=== PATIENT | female | born 1985 | race Caucasian/White ===

== ENCOUNTER 2023-08-20 18:00 | Emergency (ER) | payer MEDICAID, SELFPAY ==
[2023-08-20 18:01] VITALS: BP 114/87; PULSE 82; RESP 16; TEMP 36.3; O2SAT 99; BMI 24.5
[2023-08-20 20:24] LABS: Absolute Lymphocyte Count 4.37 X10^3/uL (0.83-4.51); Absolute Neutrophil Count 6.8 X10^3/uL (2.0-7.7); Basophil% 0.8 % (0-1); Differential Indicated SCAN CRITERIA MET; Eosinophil# 0.14 X10^3/uL; Eosinophils% 1.1 % (0-5); Hematocrit 47.7 % (37-47); Lymphocyte # 4.37 X10^3/ul (0.83-4.51); Lymphocyte % 35.8 % (19-41); Mean Corp Hgb Conc 31.4 g/dL (32-36); Mean Corpuscular Hgb 28.8 pg (27.0-32.0); Mean Corpuscular Volume 91.6 fL (81-99); Mean Platelet Vol. 9.8 fl (6.2-12.0); Monocyte# 0.71 X10^3/uL; Monocyte% 5.8 % (0-10); NRBC Flagged by Analyzer 0 % (0-5); Neutrophil # 6.82 X10^3/uL (2.7-7.7); Neutrophil % 55.9 % (47-70); POSITIVE MORPHOLOGY YES; Platelet Count 373 K/mm3 (150-450); RBC Distribution Width CV 13.9 % (11.6-14.6); RBC Distribution Width SD 46.9 fl (35.1-43.9); Red Blood Count 5.21 M/mm3 (4.2-5.4); White Blood Count 12.2 K/mm3 (4.4-11.0)
[2023-08-20 20:39] LABS: Internal QC Validated? YES +Cl - CLEAR BKGD; Pregnancy, Serum, hCG Quali. NEGATIVE Negative
[2023-08-20 20:44] LABS: Alcohol, Blood (Medical)-Serum < 3.0 mg/dL
[2023-08-20 20:46] LABS: Anion Gap 3 (5-15); BUN 8 mg/dL (7-18); Calcium,Total 9.4 mg/dL (8.5-10.1); Chloride 108 mmol/L (98-107); Creatinine, Serum 0.67 mg/dL (0.55-1.02); EST Glomerular Filtration Rate 104 mL/min (>60); Est Glom Filt Rate - Afr Amer 126 mL/min (>60); Estimated Creatinine Clearance 113.72 ml/min; Glucose 93 mg/dL (74-106); Potassium 3.7 mmol/L (3.5-5.1); Sodium Level 139 mmol/L (136-145)
[2023-08-20 20:53] LABS: Differential Comment SCANNED
[2023-08-20 20:54] LABS: Reactive Lymphocyte RARE
[2023-08-20 20:56] LABS: Amphetamine Urine NEGATIVE (<1000 ng/mL); Barbiturate Urine NEGATIVE (< 200 ng/mL); Benzodiazepine Urine NEGATIVE (< 200 ng/mL); Cocaine Urine NEGATIVE (< 300 ng/mL); Ecstacy Urine NEGATIVE (< 500 ng/mL); Methadone Urine NEGATIVE (< 300 ng/mL); Opiates Urine NEGATIVE (< 300 ng/mL); PCP Urine NEGATIVE (< 25 ng/mL); THC Urine NEGATIVE (< 50 ng/mL); Vista UDS pH Range 5
[2023-08-20 21:19] VITALS: BP 116/79; PULSE 73; RESP 18; O2SAT 98
[2023-08-20 22:00] VITALS: RESP 18
[2023-08-21 01:33] VITALS: BP 116/79; PULSE 81; RESP 16; O2SAT 98
--- NOTE | 2023-08-21 03:53 | ED.RN ---
Report called to SHAYLEE Zambrano at [facility]
--- NOTE | 2023-08-21 08:08 | EX.ED.DYSGE1 ---
HPI History of Present Illness Chief Complaint: Mental Health Informant: patient Narrative Narrative: Patient is a 37-year-old female with past medical history of depression anxiety and methamphetamine abuse. She is currently in rehab secondary to this. She states that she is having increased depression based on her situation at this time and has thoughts of harming herself. She reports she has attempted to overdose multiple times in the past. She states that she recognizes that because of her worsening depression she is at high risk for attempting to harm herself based on her past history and therefore informed members of the rehab group about this and she was sent to the ER for evaluation [facility] Medical History Anxiety History of drug overdose Depression Home Medications ?Medication ?Instructions ?Recorded ?Last Taken ?Type NK 08/20/23 Unknown History Allergy/AdvReac Type Severity Reaction Status Date / Time Food Allergies: Uncoded Allergy Hives Verified 08/20/23 18:05 latex Allergy Rash Verified 08/20/23 18:06 peanut Allergy Anaphylaxis Verified 08/20/23 18:05 Penicillins Allergy Anaphylaxis Verified 08/20/23 18:06 pineapple Allergy Anaphylaxis Verified 08/20/23 18:05 vancomycin Allergy Anaphylaxis Verified 08/20/23 18:06 Sulfa (Sulfonamide AdvReac Upset Verified 08/20/23 18:06 Antibiotics) (sulfa drugs) Stomach Social History Smoking Status: Current every day smoker tobacco type: cigarettes and e-cigarettes ROS ROS ED Constitutional Constitutional ED: Denies chills or fever(s) ENT ENT ED: Denies sore throat Cardiovascular Cardiovascular: Denies chest pain Respiratory/Chest Respiratory/Chest: Denies cough or dyspnea Gastrointestinal Gastrointestinal: Denies abdominal pain, diarrhea, nausea or vomiting Genitourinary Genitourinary ED: Denies dysuria or hematuria Musculoskeletal Musculoskeletal: Denies myalgias Integumentary Denies rash Neurologic Neurologic: Denies headache(s) Psychiatric Psychiatric: Reports anxiety, depression and suicidal ideation Hematologic/Lymphatic Hematologic/Lymphatic: Denies easy bleeding or easy bruising EXAM Physical Exam Const Vital Signs: 08/20/23 18:01 08/20/23 21:19 08/20/23 22:00 Temperature 97.4 F L Temperature Source Temporal Pulse Rate 82 73 Respiratory Rate 16 18 18 Blood Pressure 114/87 H 116/79 Blood Pressure Mean 96 91 Pulse Ox 99 98 Oxygen Delivery Method Room Air Room Air Room Air 08/21/23 01:33 Temperature Temperature Source Pulse Rate 81 Respiratory Rate 16 Blood Pressure 116/79 Blood Pressure Mean 91 Pulse Ox 98 Oxygen Delivery Method Room Air Positive well nourished and well developed General Appearance ED: well developed; Negative for pallor HEENT HEENT Narrative: Normocephalic atraumatic Eyes PERRL and EOMs intact bilaterally Neck supple Neck Narrative: No nuchal rigidity or meningeal signs Resp normal respiratory effort and clear to auscultation bilaterally Cardio regular rate and regular rhythm GI normal to inspection, nondistended, normoactive bowel sounds, non-tender, non-distended and no masses Auscultation: normoactive bowel sounds Palpation: soft Extremity normal to inspection Extremity Narrative: No asymmetric edema no pitting edema negative Homans' sign bilaterally Neuro oriented x3, CN's II-XII intact bilaterally and no sensory deficits noted Sensorium / Orientation: alert Motor Exam: strength 5/5 throughout Psych Psych Narrative: Patient has a depressed/flat affect with suicidal ideation Skin no rashes or lesions noted General Skin Exam: Negative for jaundice or pallor MDM MDM MDM Narrative Medical decision making narrative: Patient presented to the ER with stable vitals or reported history of depression with previous suicide attempt by overdose. She endorsed thoughts of this at this time as she states her depression is worsening. As patient is high risk to harm herself based on her previous history a psychiatric screening exam was performed. Workup revealed no clinically significant findings and therefore patient was medically cleared. Crisis center/psychiatry was contacted and evaluated the patient and agree that based on her high risk for self-harm and her worsening depression she will need placed. Patient was watched in the hospital overnight secondary to this while awaiting placement. She has not required chemical or physical sedation and remains hemodynamically stable and therefore medically cleared to place/transfer in a psychiatric hospital History & Record Review Discussion w/independent historian: Patient Lab Data Attestation: I reviewed the patient's lab results. Labs: Laboratory Results - last 24 hr 08/20/23 08/20/23 20:15 20:20 WBC 12.2 H RBC 5.21 Hgb 15.0 Hct 47.7 H MCV 91.6 MCH 28.8 MCHC 31.4 L RDW Std Deviation 46.9 H RDW Coeff of Claire 13.9 Plt Count 373 MPV 9.8 Immature Gran % (Auto) 0.600 Neut % (Auto) 55.9 Lymph % (Auto) 35.8 Tyrrell % (Auto) 5.8 Eos % (Auto) 1.1 Baso % (Auto) 0.8 Absolute Neuts (auto) 6.8 Absolute Lymphs (auto) 4.37 Nucleated RBC % 0 Differential Comment SCANNED Reactive Lymphocytes RARE Sodium 139 Potassium 3.7 Chloride 108 H Carbon Dioxide 28.0 Anion Gap 3 L BUN 8 Creatinine 0.67 Estim Creat Clear Calc 113.72 Est GFR (MDRD) Af Amer 126 Est GFR (MDRD) Non-Af 104 BUN/Creatinine Ratio 12.0 Glucose 93 Calcium 9.4 Serum , Qual NEGATIVE Urine Opiates Screen NEGATIVE Urine Methadone Screen NEGATIVE Ur Barbiturates Screen NEGATIVE Ur Phencyclidine Scrn NEGATIVE Ur Amphetamines Screen NEGATIVE MDMA (Ecstasy) Screen NEGATIVE U Benzodiazepines Scrn NEGATIVE Urine Cocaine Screen NEGATIVE U Cannabinoids Screen NEGATIVE Ur Drug Screen Comment Ethyl Alcohol < 3.0 Management Discussion w/another healthcare provider: Behavioral health Discharge Plan Triage Chief Complaint: Mental Health ED Provider: Aquilino Johnston Dx/Rx/DC Orders Clinical Impression: Depression, Suicidal ideation, Bipolar disorder, Methamphetamine abuse Prescriptions: No Action NK Primary Care Provider: Care Physician,No Primary Referrals: Care Physician,No Primary [Primary Care Provider] - Print Language: Croatian Disposition Disposition: Psychiatric Hospital or Unit Discharge Location: [facility]
[2023-08-21 09:20] VITALS: BP 118/76; PULSE 64; RESP 18; TEMP 36.4; O2SAT 99
== END 2023-08-21 09:21 ==
PROVIDERS: Emergency Provider Emergency Medicine; Visit Provider Emergency Medicine
DX: F31.9 Bipolar disorder, unspecified (principal); F15.10 Other stimulant abuse, uncomplicated; F17.210 Nicotine dependence, cigarettes, uncomplicated; R45.851 Suicidal ideations; F17.290 Nicotine dependence, other tobacco product, uncomplicated; Z79.899 Other long term (current) drug therapy
CPT/HCPCS: 36415; 80048; 80307; 82077; 84703; 85025; 99285